=== PATIENT | female | born 1965 ===

== ENCOUNTER 2017-08-16 12:40 | Emergency (ER) | payer MEDICAID ==
[2017-08-16 12:49] VITALS: PULSE 83; RESP 16; TEMP 97.4; O2SAT 99
--- NOTE | 2017-08-16 13:43 | ED PDOC ---
HPI: Back Time Seen by Provider: 08/16/17 12:52 Chief Complaint (Nursing): Back Pain Chief Complaint (Provider): Back Pain History Per: Patient History/Exam Limitations: no limitations Onset/Duration Of Symptoms: Days (x5) Current Symptoms Are (Timing): Still Present Additional Complaint(s): Swati Jacobsen is a 52 year old female with no significant past medical history, who is presenting to the ER for evaluation of lower back pain radiating down to the right leg, onset 5 days ago. 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 She denies any trauma, injury, fever, abdominal pain, nausea, vomiting, bowel or bladder incontinence, weakness, or urinary symptoms. PMD: Hector Davis Past Medical History Reviewed: Historical Data, Nursing Documentation, Vital Signs Vital Signs: Last Vital Signs Temp 97.4 F L 08/16/17 12:47 Pulse 83 08/16/17 12:47 Resp 16 08/16/17 12:47 BP 156/98 H 08/16/17 12:47 Pulse Ox 99 08/16/17 12:47 - Medical History PMH: No Chronic Diseases - Surgical History Surgical History: - Family History Family History: States: Unknown Family Hx - Home Medications Home Medications: Ambulatory Orders Medication Instructions Recorded Famotidine [Pepcid] 20 mg PO BID #28 tab 05/14/16 Amoxicillin 875 mg PO BID #20 tab 05/18/16 Cyclobenzaprine [Cyclobenzaprine 10 mg PO TID PRN #15 tab 08/16/17 HCl] Meloxicam [Mobic] 15 mg PO DAILY PRN #20 tab 08/16/17 - Allergies Allergies/Adverse Reactions: Allergies Allergy/AdvReac Type Severity Reaction Status Date / Time No Known Allergies Allergy Verified 05/14/16 18:28 Review of Systems ROS Statement: Except As Marked, All Systems Reviewed And Found Negative Constitutional: Negative for: Other (trauma or injury) Genitourinary Female: Negative for: Other (urinaru symptoms) Musculoskeletal: Positive for: Back Pain Physical Exam - Reviewed Nursing Documentation Reviewed: Yes Vital Signs Reviewed: Yes - Physical Exam Comments: GENERAL APPEARANCE: Patient is awake, alert, oriented x 3, in mild to moderate painful distress. Patient is ambulatory in ED. SKIN: Warm, dry; (-) cyanosis. EYES: (-) conjunctival pallor. ENMT: Mucous membranes moist. NECK: (-) tenderness, (-) stiffness, (-) lymphadenopathy. CHEST AND RESPIRATORY: (-) rales, (-) rhonchi, (-) wheezes; breath sounds equal bilaterally. HEART AND CARDIOVASCULAR: (-) irregularity; (-) murmur, (-) gallop. ABDOMEN AND GI: Soft; (-) tenderness; (-) palpable mass. BACK: (+) paralumbar tenderness, (-) direct bony tenderness, (-) deformity. EXTREMITIES: (-) deformity. Distal pulses good bilaterally. NEURO AND PSYCH: Mental status as above. Intact sensation bilaterally; normal strength in extension of the knees, plantar and dorsiflexion of the toes. - ECG O2 Sat by Pulse Oximetry: 99 (RA) Pulse Ox Interpretation: Normal Medical Decision Making Medical Decision Making: Time: 13:15 Impression: Sciatica Plan: --Flexeril 10 mg PO --Toradol 60 mg IM Reevaluation: patient states that pain is improving. Upon provider evaluation, patient is stable and in no further need of treatment in the Ed at this time. Advised to follow up with primary care physician in 1-2 days without fail. Advised to take medication as prescribed. Return to the emergency room at any time for any new or worsening symptoms. Patient states she fully agrees with and understands discharge instructions. States that she agrees with the plan and disposition. Verbalized and repeated discharge instructions and plan. I have given the patient opportunity to ask any additional questions. Scribe Attestation: Documented by Jojo Mead, acting as a scribe for Lolis Gonzalez PA-C. Provider Scribe Attestation: All medical record entries made by the Scribe were at my direction and personally dictated by me. I have reviewed the chart and agree that the record accurately reflects my personal performance of the history, physical exam, medical decision making, and the department course for this patient. I have also personally directed, reviewed, and agree with the discharge instructions and disposition. Disposition - Clinical Impression Clinical Impression: Sciatica - Patient ED Disposition Is Patient to be Admitted: No Counseled Patient/Family Regarding: Diagnosis, Need For Followup, Rx Given - Disposition Disposition: Routine/Home Disposition Time: 13:45 Condition: STABLE Additional Instructions: Thank you for letting us take care of you today. You were treated for sciatica. The emergency medical care you received today was directed at your acute symptoms. If you were prescribed any medication, please fill it and take as directed. It may take several days for your symptoms to resolve. Return to the Emergency Department if your symptoms worsen, do not improve, or if you have any other problems. Please contact your doctor in 2 days for re-evaluation and follow up. Bring any paperwork you were given at discharge with you along with any medications you are taking to your follow up visit. Our treatment cannot replace ongoing medical care by a primary care provider (PCP) outside of the emergency department. Thank you for allowing the [id number] team to be part of your care today. Prescriptions: Cyclobenzaprine [Cyclobenzaprine HCl] 10 mg PO TID PRN #15 tab PRN Reason: Muscle Spasm Meloxicam [Mobic] 15 mg PO DAILY PRN #20 tab PRN Reason: Pain, Moderate (4-7) Instructions: Sciatica (DC) Forms: [employer] (Persian), [facility] ED School/Work Excuse Print Language: FAROESE
[2017-08-16 14:37] VITALS: BP 149/100
== END 2017-08-16 14:38 | disposition home or self-care (01) ==
LOC: H.ER 12:40
DX: M54.31 Sciatica, right side (principal)
CPT/HCPCS: 81025; 96372; 99282; J1885

== ENCOUNTER 2018-06-24 16:24 | Emergency (ER) | payer MEDICAID, OTHER ==
[2018-06-24 16:25] VITALS: BMI 30.2
[2018-06-24 16:45] VITALS: PULSE 106; TEMP 100.7; O2SAT 99
[2018-06-24 16:47] VITALS: BP 140/86; RESP 20
[2018-06-24] MEDS ORDERED: Morphine 4 MG/ML VIAL IVP ONE (17:12)
[2018-06-24] MEDS ORDERED: Sodium Chloride 0.9% 1,000 ML IV ONE (17:12)
--- NOTE | 2018-06-24 17:14 | ED PDOC ---
HPI: Back Time Seen by Provider: 06/24/18 16:49 Chief Complaint (Nursing): Back Pain Chief Complaint (Provider): Back Pain History Per: Patient, County Tax Assessor (Polish, #[id number]) History/Exam Limitations: no limitations Onset/Duration Of Symptoms: Hrs (since this morning) Current Symptoms Are (Timing): Still Present Additional Complaint(s): 53 year old female presents to the ED with severe right sided back pain since this morning associated with urinary frequency. Patient reports that she has been seen for this same pain at an earlier date and was told it was a "kidney infection." Otherwise, denies nausea, other urinary symptoms (hematuria, urgency, incontinence), history of kidney stones, and recent illness. PMD: Chester Claudio Past Medical History Reviewed: Historical Data, Nursing Documentation, Vital Signs Vital Signs: Last Vital Signs Temp 100.7 F H 06/24/18 16:45 Pulse 106 H 06/24/18 16:45 Resp 20 06/24/18 16:45 BP 140/86 06/24/18 16:45 Pulse Ox 99 06/24/18 16:45 - Medical History PMH: HTN - Surgical History Surgical History: - Family History Family History: States: Unknown Family Hx - Home Medications Home Medications: Ambulatory Orders Medication Instructions Recorded Famotidine [Pepcid] 20 mg PO BID #28 tab 05/14/16 Amoxicillin 875 mg PO BID #20 tab 05/18/16 Cyclobenzaprine [Cyclobenzaprine 10 mg PO TID PRN #15 tab 08/16/17 HCl] Meloxicam [Mobic] 15 mg PO DAILY PRN #20 tab 08/16/17 Sulfamethoxazole/Trimethoprim 1 tab PO BID #20 tab 06/24/18 [Bactrim DS 800 mg-160 mg] Tamsulosin HCl [Flomax] 1 cap PO DAILY #30 06/24/18 oxyCODONE/Acetaminophen [Percocet 1 ea PO QID #16 tab 06/24/18 5/325 mg Tab] - Allergies Allergies/Adverse Reactions: Allergies Allergy/AdvReac Type Severity Reaction Status Date / Time No Known Allergies Allergy Verified 06/24/18 16:45 Review of Systems ROS Statement: Except As Marked, All Systems Reviewed And Found Negative Gastrointestinal: Negative for: Nausea Genitourinary Female: Positive for: Frequency. Negative for: Dysuria, Incontinence, Hematuria, Other (urinary urgency) Musculoskeletal: Positive for: Back Pain (right sided) Physical Exam - Reviewed Nursing Documentation Reviewed: Yes Vital Signs Reviewed: Yes - Physical Exam Appears: Positive for: Uncomfortable, In Acute Distress Head Exam: Positive for: ATRAUMATIC, NORMOCEPHALIC Skin: Positive for: Normal Color, Warm, Dry. Negative for: Rash Eye Exam: Positive for: Normal appearance Cardiovascular/Chest: Positive for: Regular Rate, Rhythm Respiratory: Positive for: Normal Breath Sounds. Negative for: Respiratory Dis tress Gastrointestinal/Abdominal: Positive for: Normal Exam, Soft. Negative for: Tenderness Back: Positive for: R CVA Tenderness. Negative for: L CVA Tenderness, Vertebral Tenderness, Other (paraspinal tenderness or muscle spasm) Neurological/Psych: Positive for: Gait (steady, unassisted in ED) - Laboratory Results Result Diagrams: 06/24/18 17:15 06/24/18 17:15 - ECG O2 Sat by Pulse Oximetry: 99 (RA) Pulse Ox Interpretation: Normal Medical Decision Making Medical Decision Making: Time: 1711 Initial Impression: renal stones v pyelonephritis Initial Plan: --CT abd/pelvis w/o contrast --CMP --U-preg --CBC with differential --Morphine 4mg IVP --Normal saline IV --Zofran 4mg IVP --Urinalysis --Reevaluation 180 Upon reevaluation, patient reports improvement in pain. CT results pending. 1815 CT FINDINGS: LOWER THORAX: The visualized lungs are clear. LIVER: Normal in size. No gross lesion or ductal dilatation. GALLBLADDER AND BILE DUCTS: Well distended. No calcified gallstones. No common bile duct dilatation. PANCREAS: Normal in size. No gross lesion or ductal dilatation. SPLEEN: Normal in size. ADRENALS: Normal in size. No discrete nodule. KIDNEYS AND URETERS: Both kidneys are normal in size. No nephrolithiasis. No left hydronephrosis. There is mild fullness in the right collecting system and minimal perinephric fat stranding as well as mild dilatation of the proximal ureteral. No evidence for obstructing stone. VASCULATURE: Normal in caliber. No aortic aneurysm. No aortic atherosclerotic calcification or mural plaque present. BOWEL: Evaluation of the bowel is limited in the absence of oral contrast. The small bowel loops are normal in caliber. The colon is normal in size. No bowel dilatation or wall thickening. No bowel obstruction. APPENDIX: Normal appendix. PERITONEUM: No free fluid. No free air. LYMPH NODES: No enlarged lymph nodes. BLADDER: Well distended and normal in appearance. REPRODUCTIVE: The uterus is anteverted and normal in size. An intrauterine device remains in satisfactory position. There is a 1.3 x 1.4 cm calcified posterior wall intramural fibroid in the lower uterine segment. BONES: No acute fracture. Within normal limits for the patient's age. OTHER FINDINGS: None. IMPRESSION: No CT evidence for nephrolithiasis or acute obstructive uropathy. Mild fullness in the right collecting system and minimal perinephric fat stranding with mild prominence of the proximal ureteral could represent recent passage of stone. 1840 Used Senior Cyber Intelligence Analyst #[id number] to inform patient that secondary to CT and clinical findings, the most likely diagnosis is the passing of a kidney stone. Will be given antibiotics and return parameters discussed. Instructed she is to follow up with her PMD. All questions answered and patient verbalized agreement and understanding of diagnosis, treatment, and plan. Stable for discharge. Scribe Attestation: Documented by Viv Carney, acting as a scribe for Evgeny Doss PA-C. Provider Scribe Attestation: All medical record entries made by the Scribe were at my direction and personally dictated by me. I have reviewed the chart and agree that the record accurately reflects my personal performance of the history, physical exam, medical decision making, and the department course for this patient. I have also personally directed, reviewed, and agree with the discharge instructions and disposition. Disposition - Clinical Impression Clinical Impression: Renal calculus, right - Patient ED Disposition Is Patient to be Admitted: No Counseled Patient/Family Regarding: Diagnosis, Need For Followup, Rx Given - Disposition Referrals: Ian Dumont MD [Medical Doctor] - Disposition: Routine/Home Disposition Time: 18:58 Condition: STABLE Prescriptions: oxyCODONE/Acetaminophen [Percocet 5/325 mg Tab] 1 ea PO QID #16 tab Sulfamethoxazole/Trimethoprim [Bactrim DS 800 mg-160 mg] 1 tab PO BID #20 tab Tamsulosin HCl [Flomax] 1 cap PO DAILY #30 Instructions: Kidney Stones in Adults, Flank Pain, Renal Colic (DC), Kidney Stone Diet Forms: [employer] (Azeri), [employer] (Polish) Print Language: MALAWIAN
[2018-06-24 17:47] LABS: BASO # 0.1 K/uL (0.0-0.2); BASO % 0.4 % (0.0-2.0); EOS # 0.1 K/uL (0.0-0.7); EOS % 0.3 % (0.0-4.0); HEMOGLOBIN 12.3 g/dL (12.0-16.0); LYMPH # 1.3 K/uL (1.0-4.3); LYMPH % 7.9 % (20.0-40.0); MEAN CORPUSCULAR HEMOGLOBIN 21.6 pg (27.0-31.0); MEAN CORPUSCULAR HGB CONC 31.7 g/dL (33.0-37.0); MEAN PLATELET VOLUME 8.7 fl (7.2-11.7); MONO # 0.7 K/uL (0.0-0.8); MONO % 4.5 % (0.0-10.0); NEUT # 13.9 K/uL (1.8-7.0); NEUT % 86.9 % (50.0-75.0); NRBC % 0.1 % (0.0-0.0); PLATELET COUNT 222 K/uL (130-400); RBC 5.71 Mil/uL (3.80-5.20); RED CELL DISTRIBUTION WIDTH 15.5 % (11.5-14.5); WHITE BLOOD COUNT 16.1 K/uL (4.8-10.8)
[2018-06-24 18:04] LABS: ALB/GLOB RATIO 1.2 (1.0-2.1); ALBUMIN 4.8 g/dL (3.5-5.0); ALT/SGPT 24 U/L (9-52); AST/SGOT 25 U/L (14-36); BLOOD UREA NITROGEN 10 mg/dl (7-17); CALCIUM 9.7 mg/dL (8.4-10.2); GFR NON-AFRICAN AMERICAN > 60
[2018-06-24 18:18] LABS: URINE BILIRUBIN NEGATIVE (NEGATIVE); URINE BLOOD MODERATE (NEGATIVE); URINE CLARITY CLEAR (Clear); URINE COLOR STRAW (YELLOW); URINE GLUCOSE (UA) NEG (NEGATIVE); URINE LEUKOCYTE ESTERASE NEG Leu/uL (Negative); URINE PROTEIN NEGATIVE (NEGATIVE); URINE UROBILINOGEN 0.2-1.0 mg/dL (0.2-1.0)
--- NOTE | 2018-06-24 18:20 | CT ---
Date of service: 06/24/2018 PROCEDURE: CT Abdomen and Pelvis without intravenous contrast HISTORY: Evaluate for renal stones COMPARISON: None. TECHNIQUE: CT scan of the abdomen and pelvis was performed without administration of intravenous contrast. Oral contrast was not administered. Coronal and sagittal reformatted images were obtained. Radiation dose: Total exam DLP = 627.01 mGy-cm. This CT exam was performed using one or more of the following dose reduction techniques: Automated exposure control, adjustment of the mA and/or kV according to patient size, and/or use of iterative reconstruction technique. FINDINGS: LOWER THORAX: The visualized lungs are clear. LIVER: Normal in size. No gross lesion or ductal dilatation. GALLBLADDER AND BILE DUCTS: Well distended. No calcified gallstones. No common bile duct dilatation. PANCREAS: Normal in size. No gross lesion or ductal dilatation. SPLEEN: Normal in size. ADRENALS: Normal in size. No discrete nodule. KIDNEYS AND URETERS: Both kidneys are normal in size. No nephrolithiasis. No left hydronephrosis. There is mild fullness in the right collecting system and minimal perinephric fat stranding as well as mild dilatation of the proximal ureteral. No evidence for obstructing stone. VASCULATURE: Normal in caliber. No aortic aneurysm. No aortic atherosclerotic calcification or mural plaque present. BOWEL: Evaluation of the bowel is limited in the absence of oral contrast. The small bowel loops are normal in caliber. The colon is normal in size. No bowel dilatation or wall thickening. No bowel obstruction. APPENDIX: Normal appendix. PERITONEUM: No free fluid. No free air. LYMPH NODES: No enlarged lymph nodes. BLADDER: Well distended and normal in appearance. REPRODUCTIVE: The uterus is anteverted and normal in size. An intrauterine device remains in satisfactory position. There is a 1.3 x 1.4 cm calcified posterior wall intramural fibroid in the lower uterine segment. BONES: No acute fracture. Within normal limits for the patient's age. OTHER FINDINGS: None. IMPRESSION: No CT evidence for nephrolithiasis or acute obstructive uropathy. Mild fullness in the right collecting system and minimal perinephric fat stranding with mild prominence of the proximal ureteral could represent recent passage of stone.
[2018-06-24 19:05] LABS: BANDS 2 % (0-2); EOSINOPHIL 1 % (0-7); LYMPHOCYTE 10 % (20-50); MONOCYTE 7 % (0-10); NEUTROPHIL 80 % (42-75); TOTAL CELLS COUNTED 100
[2018-06-24 19:06] LABS: ANISOCYTOSIS SLIGHT; HYPOCHROMIC SLIGHT; MICROCYTOSIS MODERATE; PLATELET ESTIMATE NORMAL (NORMAL); POIKILOCYTOSIS SLIGHT; POLYCHROMIC SLIGHT; SCHISTOCYTES SLIGHT; SPHEROCYTES SLIGHT
== END 2018-06-24 19:15 | disposition home or self-care (01) ==
LOC: H.ER 16:24
DX: N20.0 Calculus of kidney (principal); I10 Essential (primary) hypertension; N12 Tubulo-interstitial nephritis, not specified as acute or chronic
CPT/HCPCS: 74176; 80053; 81003; 81025; 85025; 96361; 96374; 96375; 99283; J2270; J2405; J7030